=== PATIENT | male | born 1975 | race Caucasian/White ===

== ENCOUNTER 2018-06-11 02:41 | Emergency (ER) | payer OTHER ==
[2018-06-11] MEDS ORDERED: KETOROLAC 15 MG/1 ML SDV IVP ONE ×2 (03:01→05:42)
[2018-06-11] MEDS ORDERED: fentaNYL 100 MCG/2 ML INJ IVP ONE (03:01)
--- NOTE | 2018-06-11 03:01 | EDPHY ---
H & P Source: Patient Exam Limitations: No limitations - Medical/Surgical History Hx Asthma: No Hx Chronic Respiratory Disease: No Hx Diabetes: No Hx Cardiac Disease: No Hx Renal Disease: No Hx Cirrhosis: No Hx Alcoholism: No Hx HIV/AIDS: No Hx Splenectomy or Spleen Trauma: No Other PMH: add/dairy allergy - Family History Significant Family History: No pertinent family hx - Social History Smoking Status: Former smoker Alcohol Use: None Drug Use: None Time Seen by Provider: 06/11/18 02:55 HPI/ROS: CHIEF COMPLAINT: Severe right flank pain HISTORY OF PRESENT ILLNESS: Medically healthy 48-year-old male complains of severe right flank pain. This started approximately 5 hr ago. He has been so sick with recurrent vomiting that he has been unable to take anything for this pain. The pain itself started the right flank. It seems to have expanded a little bit to go down to the iliac crest. Is getting so intense that he can't really localize it any longer but it certainly begin in the right flank. It does go around to the anterior abdomen. Does not go into the scrotum. He has had no dysuric symptoms. There has been no hematuria. He did urinate at the time of the onset of the pain however he has not since. Denies any dysuria frequency. He feels is the same general area is prior kidney stones x2. However it is far more intense. Further, he was able to pass those and did not require instrumentation last being about 5 years ago REVIEW OF SYSTEMS: Constitutional: No fever, no chills. Cardiovascular: No chest pain, no palpitations. Respiratory: No cough, shortness of breath, or wheezing. Gastrointestinal: No Nausea, vomiting, abdominla pain or diarrhea Genitourinary: See above Musculoskeletal: See above Skin: No rashes. Neurological: No headache. A 10 system review of systems was performed and is negative except for the noted findings in the HPI. (Wong Dotson) - Physical Exam Exam: General Appearance: Alert, physiologically well without diaphoresis but in severe distress as he has his face buried in the pillow and unable to make eye contact or discussed his clinical history as information is obtained from his spouse. He appears rather uncomfortable. Afebrile. Normal phonation. No respiratory distress. Eyes: Pupils equal and round no pallor or injection. No icterus ENT, Mouth: Mucous membranes moderately dry Pharynx without erythema or exudate. TM Clear. Neck: No adenopathy. Supple. No JVD. Trachea in midline. Respiratory: There are no retractions, lungs are clear to auscultation. Cardiovascular: Regular rate and rhythm. Abdomen: Soft and nontender, no masses, bowel sounds normal. Femoral pulses equal. Neurological: Ox3. No motor weakness. Sensation intact. Skin: Warm and dry, no rashes. Musculoskeletal: No joint swelling. Extremities: No edema. Psychiatric: Normal affect. Patient is oriented X 3. There is no agitation ( Mauri,Wong Loya) Constitutional: Initial Vital Signs Temperature (C) 36.6 C 06/11/18 02:42 Heart Rate 72 06/11/18 02:42 Respiratory Rate 16 06/11/18 02:42 Blood Pressure 145/98 H 06/11/18 02:42 O2 Sat (%) 99 06/11/18 02:42 O2 Delivery Mode Nasal Cannula O2 (L/minute) 2 Allergies/Adverse Reactions: milk Allergy (Verified 10/22/14 17:08) Milk Containing Products Allergy (Verified 10/22/14 17:08) Home Medications: Medication Instructions Recorded Lisdexamfetamine Dimesylate 50 mg PO DAILY 10/22/14 [VYVANSE] Promethazine HCl [Phenergan 12.5mg 12.5 mg PO Q6 PRN #10 tablet 06/11/18 tab] buPROPion [Wellbutrin 75mg (*)] 06/11/18 Medical Decision Making - Diagnostics Imaging Results: Imaging Impressions Abdomen X-Ray 06/11/18 04:51 Impression: 1. Constipation. 2. No definite radiopaque calculi overlying the kidneys. Abdomen/Pelvis CT 06/11/18 06:47 Impression: 1. Right mild to moderate hydroureteronephrosis, secondary to a 3-mm calculus in the posterior right side of the bladder either at the ureterovesical junction or just passed into the bladder. 2. Three additional nonobstructing calyceal calculi in the right kidney measuring from 1 to 3 mm in size. 3. No left nephrolithiasis or hydronephrosis. 4. Constipation. 5. Possible cyst in the lower pole left kidney 2.6 cm and indeterminate subcentimeter hypodensities in the left lobe of the liver without hepatomegaly or splenomegaly. Findings and recommendations discussed with Emergency Department physician, Dr. Paulino Hensley at 0724 hours on June 11, 2018. Final report concurs with initial preliminary interpretation. Attention: This CT examination is specifically designed to evaluate patients who are clinically suspected of having acute obstructive uropathy. This examination does not use radiographic contrast, and as such, provides only a limited evaluation of the abdomen, pelvis and retroperitoneum. If there is further clinical suspicion for pathological conditions other than obstructive uropathy, a complete CT evaluation of the abdomen and pelvis utilizing intravenous, oral, and rectal contrast should be considered. ED Course/Re-evaluation: He was really uncomfortable on presentation thus was given the following: Fentanyl 50 mcg IV Dilaudid 1 mg IV Ketorolac 15 mg IV. He had a pretty good response and was feeling moderately better with the pain being moderate in nature down to a 6 from a 9. Urinalysis showed: negative leukocytes, negative nitrites, though positive for blood, concentrated specimen at 1.030. However, over time the pain started creeping back. Thereby he was given: Dilaudid 0.5 mg IV x2 in sequential doses. Ketorolac 15 mg IV Sent for KUB KUB shows 2 which stool to truly see a kidney stone 0550-pain is marginally better. He does not feel he is ready to go home.. We will go ahead and give him some Percocet at this time 2 tablets. 0650. Still vomiting on occasion. Pain is not respond well. Plan accordingly: CT scan ordered Dilaudid 1 mg IV Zofran 8 mg IV I have explained to him at this point he lives had 3 mg of Dilaudid over the course of the last 4 hr and should he not have a good response to this that he will need to be admitted for pain control. Further, at this point in time we need imaging to delineate the actual size of the suspected stone for prognostic plan. Case reviewed with Dr. Hensley at 7:[address] scan pending (Wong Dotson) Differential Diagnosis: Differential diagnosis includes, but is not limited to: Gastroenteritis, dehydration, diverticulitis, pancreatitis, renal colic, kidney stones, ureterolithiasis, appendicitis, gastritis. (Wong Dotson) Other Provider: [address] Vani Nunn pending CT scan results in improvement in the patient's symptoms. 0730 CT scan results noted. Lidocaine drip is just being hung now. Patient is complaining of some pain. I have also ordered a single dose of tamsulosin. Will reassess the pain.. (Paulino Hensley) - Data Points Medications Given: Discontinued Medications Fentanyl (Sublimaze) 50 mcg IVP EDNOW ONE Stop: 06/11/18 03:02 Last Admin: 06/11/18 03:07 Dose: 50 mcg Hydromorphone HCl (Dilaudid) 1 mg IVP EDNOW EVGENY Stop: 06/21/18 03:14 Last Admin: 06/11/18 03:08 Dose: 1 mg Hydromorphone HCl (Dilaudid) 0.5 mg IVP EDNOW ONE Stop: 06/11/18 04:52 Last Admin: 06/11/18 05:06 Dose: 0.5 mg Hydromorphone HCl (Dilaudid) 0.5 mg IVP EDNOW ONE Stop: 06/11/18 05:43 Last Admin: 06/11/18 05:52 Dose: 0.5 mg Hydromorphone HCl (Dilaudid) 1 mg IVP EDNOW ONE Stop: 06/11/18 06:46 Last Admin: 06/11/18 06:58 Dose: 1 mg Sodium Chloride (Ns) 1,000 mls @ 0 mls/hr IV ONCE ONE; Wide Open PRN Reason: Protocol Stop: 06/11/18 07:04 Last Admin: 06/11/18 07:13 Dose: 1,000 mls Lidocaine HCl 125 mg/ Sodium (Chloride) 112.5 mls @ 600 mls/hr IV EDNOW ONE Stop: 06/11/18 07:12 Last Admin: 06/11/18 07:33 Dose: 112.5 mls Sodium Chloride (Ns) 1,000 mls @ 0 mls/hr IV ONCE ONE PRN Reason: Wide Open Stop: 06/11/18 08:45 Last Admin: 06/11/18 08:45 Dose: 1,000 mls Ketamine HCl (Ketamine) 16.3 mg 0.2 mg/kg (16.3 mg) IVP EDNOW ONE Stop: 06/11/18 08:31 Last Admin: 06/11/18 08:48 Dose: 16.3 mg Ketorolac Tromethamine (Toradol) 15 mg IVP EDNOW ONE Stop: 06/11/18 03:02 Last Admin: 06/11/18 03:08 Dose: 15 mg Ketorolac Tromethamine (Toradol) 15 mg IVP EDNOW ONE Stop: 06/11/18 05:43 Last Admin: 06/11/18 05:47 Dose: 15 mg Ondansetron HCl (Zofran) 8 mg IVP ONCE ONE Stop: 06/11/18 06:47 Last Admin: 06/11/18 06:59 Dose: 8 mg Oxycodone/Acetaminophen (Percocet 5/325mg Prepack#4) 1 btl TAKEHOME EDNOW ONE Stop: 06/11/18 05:38 Last Admin: 06/11/18 05:48 Dose: 1 btl Oxycodone/Acetaminophen (Percocet 5/325) 2 tab PO EDNOW ONE Stop: 06/11/18 06:18 Last Admin: 06/11/18 06:20 Dose: 2 tab Tamsulosin HCl (Flomax) 0.4 mg PO EDNOW ONE Stop: 06/11/18 07:33 Last Admin: 06/11/18 07:54 Dose: 0.4 mg Point of Care Test Results: Urine Dip Collection Date 06/11/18 Collection Time 04:45 Specific [place] (1.002-1.030) 1.030 PH (5.0-7.5) 6.0 Leukocytes (Negative) Negative Nitrites (Negative) Negative Protein (Negative) 1+ Glucose (Negative) Negative Ketones (Negative) Negative Urobilnogen (0.2-1.0 EU) 0.2 Bilirubin (Negative) Test Not Performed Blood (Negative) 2+ Departure - Departure Clinical Impression: Renal colic on right side, Constipation Condition: Good Instructions: Kidney Stones (ED) Additional Instructions: You were given Dilaudid here in the ER. It is important you do not drive or drink or worker machinery for at least 24 hours. Follow-up with family physician in 2-3 days Return if you develops fever or worsening symptoms not controlled. Ibuprofen 800 mg 3 times a day = this will lessen the amount of pain medications necessary. Make sure to drink plenty of clear liquids every day. You may take MiraLax daily according to package instructions. If you feel constipated drink 1/2 bottle of magnesium citrate. Wait 1-2 hours. If you do not have a bowel movement after that time drink the 2nd half of the bottle. If you continues to be constipated you may use a Fleet's enema, available over- the-counter. Referrals: Patient,NotPresent [Unknown] - As per Instructions Dilip Sullivan MD [Medical Doctor] - As per Instructions Prescriptions: Promethazine HCl [Phenergan 12.5mg tab] 12.5 mg PO Q6 PRN #10 tablet PRN Reason: Nausea/Vomiting, Use 1st
[2018-06-11] MEDS ORDERED: HYDROmorphONE/DILAUDID 2 MG/ML INJ IVP SCH (03:15)
[2018-06-11] MEDS ORDERED: HYDROmorphONE/DILAUDID 1 MG/ML INJ IVP ONE ×2 (04:51→05:42)
[2018-06-11] MEDS ORDERED: OXYCODONE/APAP 5/325MG PREPACK#4 BTL TAKEHOME ONE (05:37)
[2018-06-11] MEDS ORDERED: OXYCODONE/APAP 5/325 TAB PO ONE (06:17)
[2018-06-11] MEDS ORDERED: HYDROmorphONE/DILAUDID 2 MG/ML INJ IVP ONE (06:45)
[2018-06-11] MEDS ORDERED: ONDANSETRON 4 MG/2 ML VIAL IVP ONE (06:46)
[2018-06-11] MEDS ORDERED: NS IV ONE (07:01)
[2018-06-11] MEDS ORDERED: LIDOCAINE IV ONE (07:01)
[2018-06-11] MEDS ORDERED: NS 1,000 ML IV ONE ×2 (07:03→08:44)
[2018-06-11] MEDS ORDERED: TAMSULOSIN HCL 0.4 MG CAP PO ONE (07:32)
[2018-06-11] MEDS ORDERED: KETAMINE 500 MG/10 ML VIAL IVP ONE (08:30)
[2018-06-11 10:22] VITALS: BP 123/85
== END 2018-06-11 10:28 | disposition home or self-care (01) ==
LOC: CED 02:41
DX: N23 Unspecified renal colic (principal); K59.00 Constipation, unspecified; E86.9 Volume depletion, unspecified; R93.422 Abnormal radiologic findings on diagnostic imaging of left kidney; Z87.891 Personal history of nicotine dependence
CPT/HCPCS: 74018-PO; 74176-PO; 96361-ER; 96374-ER; 96375-ER; 96376-ER; J1170; J1885; J2405; J3010

== ENCOUNTER 2018-06-15 12:59 | Day surgery (SDC) | payer OTHER ==
[2018-06-15] MEDS ORDERED: LR 1,000 ML IV ONE (13:18)
[2018-06-15] MEDS ORDERED: LIDOCAINE 2% JELLY 20 ML (UROJECT) ONE (15:37)
--- NOTE | 2018-06-15 15:37 | PDANEPAE ---
ANE History of Present Illness renal stone ANE Past Medical History - Cardiovascular History Hx Hypertension: No Hx Arrhythmias: No Hx Chest Pain: No Hx Coronary Artery / Peripheral Vascular Disease: No Hx CHF / Valvular Disease: No Hx Palpitations: No - Pulmonary History Hx COPD: No Hx Asthma/Reactive Airway Disease: No Hx Recent Upper Respiratory Infection: No Hx Oxygen in Use at Home: No Hx Sleep Apnea: No - Neurologic History Hx Cerebrovascular Accident: No Hx Seizures: No Hx Dementia: No Neurologic History Comment: POST CONCUSSION SYNDROME. PATIENT CURRENTLY IN VISION. THERAPY - Endocrine History Hx Diabetes: No Hypothyroid: No Hyperthyroid: No Obesity: no - Renal History Hx Renal Disorders: No - Liver History Hx Hepatic Disorders: No - Neurological & Psychiatric Hx Hx Neurological and Psychiatric Disorders: No - Cancer History Hx Cancer: No - Congenital Disorder History Hx Congenital Disorders: No - GI History GERD: no Hx Gastrointestinal Disorders: No - Chronic Pain History Chronic Pain: No ANE Review of Systems Review of systems is: negative Review of Systems: - Exercise capacity METS (RN): 6 METS ANE Patient History - Allergies Allergies/Adverse Reactions: milk Allergy (Verified 10/22/14 17:08) Milk Containing Products Allergy (Verified 10/22/14 17:08) - Home Medications Home medications: home medication list seen and reviewed Home Medications: Lisdexamfetamine Dimesylate [VYVANSE] 50 mg PO DAILY 10/22/14 [Last Taken ] buPROPion [Wellbutrin 75mg (*)] 06/11/18 [Last Taken Unknown] - NPO status NPO Status: no food or drink >8 hours NPO Since - Liquids (Date): 06/15/18 NPO Since - Liquids (Time): 08:00 NPO Since - Solids (Date): 06/15/18 NPO Since - Solids (Time): 10:30 - Anes Hx Anes Hx: no prior problems - Smoking Hx Smoking Status: Former smoker - Alcohol Use Alcohol Use: None - Family Anes Hx Family Anes Hx: none Family Hx Anesthesia Complications: NONE ANE Labs/Vital Signs - Vital Signs Blood Pressure: 126/87 Heart Rate: 87 Respiratory Rate: 16 O2 Sat (%): 96 Height: 193.04 cm Weight: 81.647 kg ANE Physical Exam - Airway Neck exam: FROM Mallampati Score: Class 2 Mouth exam: normal dental/mouth exam - Pulmonary Pulmonary: no respiratory distress, clear to auscultation - Cardiovascular Cardiovascular: regular rate and rhythym, no murmur, rub, or gallop - ASA Status ASA Status: II ANE Anesthesia Plan Anesthesia Plan: GA with mask
[2018-06-15] MEDS ORDERED: IOPAMIDOL (ISOVUE-M 300) 15 ML VIAL ONE (15:38)
[2018-06-15] MEDS ORDERED: MIDAZOLAM 2 MG/2 ML VIAL IVP ONE (15:42)
[2018-06-15] MEDS ORDERED: fentaNYL 100 MCG/2 ML INJ ONE (15:46)
[2018-06-15] MEDS ORDERED: PROPOFOL 200 MG/20 ML VIAL ONE (15:46)
--- NOTE | 2018-06-15 16:34 | PDGENHP ---
History & Physical Chief Complaint: left ureteral stone History of Present Illness: onset of right flank pain, N / V no fevers, imaging noted stone and hydronephrosis Pertinent Past, Social, Family History: + stones. nonsmoker. Relevant Physical Exam: HEENT normal. chest normal respiratory effort. heart RRR. abdomen soft. neuro ox3 Cardiorespiratory Assessment: normal heart / lungs
--- NOTE | 2018-06-15 16:34 | PDHPUP ---
History & Physical Update H&P update statement: This history and physical update is based on an assessment of the patient which was completed after admission or registration (within 24 hours), but prior to the surgery/procedure. H&P update: H&P reviewed & patient examined, no change in patient's condition since H&P completed
[2018-06-15] MEDS ORDERED: ceFAZolin 2 GM/DEXTROSE 100 ML IV ONE (16:35)
[2018-06-15] MEDS ORDERED: DEXAMETHASONE 4 MG/ML VIAL ONE (16:55)
[2018-06-15] MEDS ORDERED: KETOROLAC 30 MG/1 ML SDV ONE (17:45)
[2018-06-15] MEDS ORDERED: fentaNYL 100 MCG/2 ML INJ IVP PRN (17:46)
[2018-06-15] MEDS ORDERED: HYDROCODONE/APAP 5/325 TAB PO PRN (17:46)
[2018-06-15] MEDS ORDERED: NALOXONE HCL 0.4 MG/ML INJ IVP PRN (17:46)
[2018-06-15] MEDS ORDERED: ONDANSETRON 4 MG/2 ML VIAL IVP PRN (17:46)
[2018-06-15] MEDS ORDERED: oxyCODONE IR 5 MG TAB PO PRN (17:46)
[2018-06-15] MEDS ORDERED: ALBUTEROL 3 ML DEYVIAL IH PRN (17:46)
[2018-06-15] MEDS ORDERED: PROMETHAZINE HCL 25 MG/ML INJ IVP PRN (17:46)
[2018-06-15] MEDS ORDERED: LR 500 ML IV PRN (17:46)
--- NOTE | 2018-06-15 18:00 | POSTOPPROG ---
Post Op Note Date of Operation: 06/15/18 (dictated) Surgeon: Dilip Sullivan Anesthesiologist: Ovidio Anesthesia: LMA Pre-op Diagnosis: ureterolithiasis and nephrolithiasis Procedure: ureteroscopy and laser of ureteral and renal stones Inf/Abcess present in the surg proc area at time of surgery?: No EBL: Minimal Drains: Other (stent)
--- NOTE | 2018-06-15 18:02 | POSTANESTH ---
Post Anesthetic Evaluation Cardiovascular Status: Normal, Stable Respiratory Status: Normal, Stable Level of Consciousness/Mental Status: Can Participate in Eval, Mildly Sleepy, Arousable Pain Control: Adequate, Prn Tx Ordered Nausea/Vomiting Control: Adequate, Prn Tx Ordered Complications Possibly Related to Anesthesia: None Noted
--- NOTE | 2018-06-15 18:15 | GOP ---
[f rep st] OPERATIVE REPORT DATE OF OPERATION: 06/15/2018 SURGEON: Dilip Sullivan MD NEUROSURGEON: Dilip Sullivan MD. PREOPERATIVE DIAGNOSIS: Right ureterolithiasis and right nephrolithiasis. POSTOPERATIVE DIAGNOSIS: Right ureterolithiasis and right nephrolithiasis. PROCEDURE PERFORMED: Right ureteroscopy with stone removal and right nephroscopy with laser lithotri psy of nephrolithiasis, plus retrograde ureteral pyelogram with interpretation on fluoroscopy and olu cement of ureteral stent. FINDINGS: SPECIMENS: No stone sent for analysis. DESCRIPTION OF PROCEDURE: General anesthesia, prepped and draped in normal sterile fashion in dorsal lithotomy position. The right ureteral orifice was cannulated with a Abrams catheter. Retrograde revealed a distal ureteral stone. It appeared he had renal collecting stones. So, at that point, I was able to laser and extract the ureteral stone distally and then pass the ureteral guide access she ath up to the renal pelvis, then identified nephrocalcinosis and calyceal stones and there were about 6 stones that were blasted with the laser lithotrite. At the end of the procedure, there was minima l bleeding. No perforation of the kidney. It was interesting, he had 1 crater adjacent to a papilla that had a stone in it, and I dislodged the stone and then extracted it. At the end of the procedur e, Urojet was placed in the urethra and the ureteral stent was passed. It curled in the renal pelvis , curled in the bladder and a Walter catheter placed. He tolerated the procedure well and will be dis charged home to see me in a week for stent removal. COMPLICATIONS: No complications. /[id number]/MODL
[2018-06-15 18:44] VITALS: BP 116/82
== END 2018-06-15 19:13 | disposition home or self-care (01) ==
LOC: FSGY 12:59
PROVIDERS: ATTEND Specialist
PROC: 0T768DZ Dilation of Right Ureter with Intraluminal Device, Via Natural or Artificial Opening Endoscopic (ICD-10-PCS; principal; 2018-06-15 15:45)
PROC: BT1D1ZZ Fluoroscopy of Right Kidney, Ureter and Bladder using Low Osmolar Contrast (ICD-10-PCS; principal; 2018-06-15 15:45)
PROC: 0TF68ZZ Fragmentation in Right Ureter, Via Natural or Artificial Opening Endoscopic (ICD-10-PCS; principal; 2018-06-15 15:45)
PROC: 0TF38ZZ Fragmentation in Right Kidney Pelvis, Via Natural or Artificial Opening Endoscopic (ICD-10-PCS; principal; 2018-06-15 15:45)
DX: N13.2 Hydronephrosis with renal and ureteral calculous obstruction (principal); Z87.442 Personal history of urinary calculi; Z87.891 Personal history of nicotine dependence
CPT/HCPCS: 52356; C1769; C1894; 82365-90; C2625; J0690; J1100; J1885; J2250; J2704; J3010; Q9967